=== PATIENT | male | born 1960 | race Caucasian/White ===

== ENCOUNTER 2018-06-14 07:13 | Emergency (ER) | payer OTHER ==
--- OUTSIDE RECORDS SUMMARY | 2018-06-14 07:16 | XMS REPORT | Continuity of Care Document ---
:1960 Author Organization Interface Problems Problem Status Onset Classification Date Comments Source Date Reported ATYPICAL CHEST Active 05/29/20 PAIN, BACTERIAL 17 [facility] [place] CHEST PAIN Active 05/29/20 17 [facility] [place] Benign Active Problem 06/02/2017 Data hypertension<sup> migrated [facility] 1</sup> from [facility] on 11/02/14. CVA (<span Resolved Problem 10/19/2017 ID="[id number]" [facility] >Confirmed</span> [place],[facility] ) [facility] Chest pain Active Problem 10/19/2017 [facility] COPD (<span Resolved Problem 10/19/2017 MH ID="[id number]" [facility] >Confirmed</span> [place] ) [facility] Chronic pain Active Problem 10/19/2017 [facility] Shortness of Active Problem 10/19/2017 breath [facility] Abnormal ECG Active Problem 10/19/2017 [facility] Heart disease Resolved Problem 10/19/2017 [facility] [place] Hyperlipidemia Resolved Problem 10/19/2017 [facility] Group HTN (<span Resolved Problem 10/19/2017 ID="[id number]" [facility] >Confirmed</span> [place] ) [facility] Mixed Active Problem 10/19/2017 hyperlipidemia Medical Group [place] (<span Resolved Problem 10/19/2017 ID="[id number]" [facility] >Confirmed</span> [place] ) [facility] COPD type A Active Problem 10/19/2017 [facility] OTHER CHEST PAIN Active [facility] [place] UNSPECIFIED Active BACTERIAL [facility] [place] Medications Medication Details Route Status Patient Ordering Order Source Instructions Provider Date atorvastatin 20 20 mg=1 tab, Active MH mg oral tablet PO, Bedtime, 018 Medical # 90 tab, 3 Group Refill(s), Pharmacy: [facility] [id number] lisinopril 10 mg 10 mg=1 tab, Active MH oral tablet PO, Daily, # 018 Medical 90 tab, 3 Group Refill(s), [email or web address] [id number] metoprolol 50 mg 50 mg=1 tab, Active MH oral tablet, PO, Daily, # 018 Medical extended release 90 tab, 3 Group Refill(s), [email or web address] [id number] 200 ACTUAT 2 puff, Active Ipratropium INHALATION, 018 Medical [place] 0.017 TID, May Group MG/ACTUAT take 2 Metered Dose additional Inhaler puffs per [Atrovent] day if needed for wheezing, # 1 ea, 11 Refill(s), [email or web address] [id number] Amlodipine 5 mg, 1 tab, No Longer MH Route: PO, Active 017 [facility] form: [place] TAB, Daily, Dosing Weight 66.96, kg, Start date: 05/31/17 9:00:00 [employer], Duration: 30 day, Stop date: 06/29/17 9:00:00 CSTNotes: (Same as: Norvasc) atorvastatin 20 mg, 1 Inactive MH tab, Route: 017 [facility] PO, Drug [place] form: TAB, Bedtime, Dosing Weight 66.96, kg, Start date: 05/30/17 21:00:00 [employer], Duration: 30 day, Stop date: 06/28/17 21:00:00 CSTNotes: (Same As: Lipitor) levofloxacin 750 750 mg=1 Active MH mg oral tablet tab, PO, 017 [facility] [id number], X 7 [place] day, # 7 tab, 0 Refill(s), Pharmacy: [facility] [id number] atorvastatin 20 20 mg=1 tab, Active MH mg oral tablet PO, Bedtime, 017 [facility] # 30 tab, 0 [place] Refill(s), [facility] [id number] amLODIPine 5 mg 5 mg=1 tab, Active MH oral tablet PO, Daily, # 017 [facility] 30 tab, 0 [place] Refill(s), [email or web address] [id number] aspirin 81 mg 81 mg=1 tab, Active MH tablet, enteric PO, Daily, 0 017 [facility] coated Refill(s) [place] Aspirin 81 mg, 1 Inactive MH tab, Route: 017 [facility] PO, Drug [place] form: ECTAB, Daily, Dosing Weight 66.96, kg, Start date: 05/30/17 14:30:00 [employer], Duration: 30 day, Stop date: 06/29/17 9:00:00 CSTNotes: Do not crush or chew. (Same As: Ecotrin) carvedilol 25 mg, 1 Inactive MH tab, Route: 017 [facility] PO, Drug [place] form: TAB, Q12H, Dosing Weight 66.96, kg, Priority: STAT, Start date: 05/30/17 11:27:00 [employer], Duration: 30 day, Stop date: 06/29/17 9:00:00 CSTNotes: Give with food. (Same As: Coreg) Levaquin 750 mg, 1 Inactive MH tab, Route: 017 [facility] PO, Drug [place] form: TAB, [id number], Dosing Weight 66.96, kg, Start date: 05/30/17 9:00:00 [employer], Duration: 7 day, Stop date: 06/05/17 9:00:00 [employer], ABX Indication: PneumoniaNot es: Do not give w/antacids, dairy pdt & minerals Take 1 hr before or 2 hr after dairy products Ibuprofen 600 mg, 1 No Longer MH tab, Route: Active 017 [facility] PO, Drug [place] form: TAB, TID, Dosing Weight 66.96, kg, PRN Pain Score 6-10, Start date: 05/29/17 22:37:00 [employer], Duration: 30 day, Stop date: 06/28/17 22:36:00 CSTNotes: (Same as: Motrin) "Do Not Crush" Take with food. Saline Flush 10 ml, No Longer MH 0.9% Route: IVP, Active 017 [facility] Form: [place] INJ, Dosing Weight 71.364, kg, Q12H, Start date: 05/29/17 21:00:00 [employer], Duration: 30 day, Stop date: 06/28/17 9:00:00 CSTNotes: Same as: BD Posiflush Sterile Saline Flush 10 ml, No Longer MH 0.9% Route: IVP, Active 017 [facility] Form: [place] INJ, Dosing Weight 71.364, kg, PRN, PRN Line Flush, Start date: 05/29/17 15:47:00 [employer], Duration: 30 day, Stop date: 06/28/17 15:46:00 CSTNotes: Same as: BD Posiflush Sterile Nitroglycerin 0.4 mg, 1 No Longer tab, Route: Active 017 [facility] SL, Drug [place] form: TAB, Q5Min, Dosing Weight 71.364, kg, PRN Chest Pain, Start date: 05/29/17 15:47:00 [employer], Duration: 3 doses or times, Stop date: Limited # of timesNotes: (Same as:Nitroquic k, Nitrostat) "Do Not Crush" Sublingual tablet pantoprazole 40 40 mg=1 tab, Active MH mg oral enteric PO, Daily 017 [facility] coated tablet [place] Aspirin 325 MG 325 mg=1 No Longer Enteric Coated tab, PO, Active 017 [facility] Tablet Daily [place] carvedilol 25 mg 25 mg=1 tab, Active oral tablet PO, BID 017 [facility] [place] Levaquin 750 mg, 1 Inactive tab, Route: 017 [facility] PO, Drug [place] form: TAB, ONCE, Dosing Weight 71.364, kg, Start date: 05/29/17 13:31:00 [employer], Stop date: 05/29/17 13:31:00 [employer], ABX Indication: PneumoniaNot es: Do not give w/antacids, dairy pdt & minerals Take 1 hr before or 2 hr after dairy products Saline Flush 10 mL, No Longer 0.9% Route: IVP, Active 017 [facility] Form: [place] INJ, Dosing Weight 71.364, kg, PRN, PRN Line Flush, Start date: 05/29/17 12:16:00 [employer], Duration: 30 day, Stop date: 06/28/17 12:15:00 CSTNotes: Same as: BD Posiflush Sterile Allergies, Adverse Reactions, Alerts Substance Category Reaction Severity Reaction Status Date Comments Source type Reported Immunizations Immunization Date Site Status Last Updated Comments Source Given pneumococcal Left completed Cristi [facility] 23-valent vaccine 7 deltoid [facility] influenza virus Left completed Parimnder [facility] vaccine, 7 deltoid [facility], inactivated Medical Group Results Order Name Results Value Reference Date Interpretation Comments Source Range CARDIAC Troponin-I 0.05 ng/mL 0.00 - 05/30 ENZYMES 0.40 [facility] CARDIAC CK MB 9.8 ng/mL 0.5 - 3.6 05/30 ENZYMES /2016 [facility] CARDIAC Total CK 761 unit/L 05/30 ENZYMES /2017 [facility] CARDIAC Troponin-I 0.07 ng/mL 0.00 - 05/29 ENZYMES 0.40 [facility] CARDIAC Total CK 825 unit/L - 05/29 ENZYMES [facility] CARDIAC CK MB 11.8 ng/mL 0.5 - 3.6 05/29 ENZYMES [facility] CHEM PANEL eGFR 69 05/29 Result Comment: The eGFR is calculated using the CKD-EPI formula. In most young, healthy individuals the eGFR will be >90 mL/ min/1.73m2. The eGFR declines with age. An eGFR of 60-89 may be normal in mL/min/1.73 /2016 some populations, particularly the elderly, for whom the CKD-EPI formula has not been extensively validated. Use of the eGFR is not recommended in the following populations: [facility] [place] Individuals with unstable creatinine concentrations, including patients and those with serious co-morbid conditions. Patients with extremes in muscle mass or diet. The data above are obtained from the National Kidney Disease Education Program (NKDEP) which additionally recommends that when the eGFR is used in patients with extremes of body mass index for purposes of drug dosing, the eGFR should be multiplied by the estimated BMI. CHEM PANEL AGAP 12.8 meq/L 10.0 - 05/29 MH 20.0 /2016 [facility] CHEM PANEL Potassium 3.8 meq/L 3.5 - 5.1 05/29 Lvl /2017 [facility] CHEM PANEL CO2 24 meq/L 24 - 32 05/29 [facility] CHEM PANEL Chloride Lvl 102 meq/L 95 - 109 05/29 [facility] CHEM PANEL Calcium Lvl 8.6 mg/dL 8.5 - 10.5 05/29 [facility] CHEM PANEL BUN 24 mg/dL 7 - 22 05/29 [facility] CHEM PANEL Creatinine 1.16 mg/dL 0.50 - 05/29 Lvl 1.40 /2016 [facility] CHEM PANEL Sodium Lvl 135 meq/L 135 - 145 05/29 [facility] CHEM PANEL Glucose Lvl 88 mg/dL 70 - 99 05/29 [facility] LIPIDS HDL 44 mg/dL >=61 mg/dL 05/29 [facility] LIPIDS Chol 159 mg/dL <=199 05/29 mg/dL /2016 [facility] LIPIDS Trig 56 mg/dL <=149 05/29 mg/dL /2016 [facility] LIPIDS CHD Risk 3.61 4.00 - 05/29 MH 7. [facility] LIPIDS VLDL 11 05/29 [facility] LIPIDS LDL 104 mg/dL <=99 mg/dL 05/29 (Calculated) [facility] CARDIAC Troponin-I 0.04 ng/mL 0.00 - 05/29 ENZYMES 0.40 [facility] CARDIAC BNP 254 pg/mL <=100 05/29 ENZYMES pg/mL /2016 [facility] CARDIAC CK MB 11.4 ng/mL 0.5 - 3.6 05/29 ENZYMES [facility] CARDIAC Total CK 902 unit/L 12 - 191 05/29 ENZYMES /2016 [facility] CARDIAC CK MB Index 1.3 0.0 - 2.5 05/29 ENZYMES [facility] CHEM PANEL eGFR 68 05/29 Result Comment: The eGFR is calculated using the CKD-EPI formula. In most young, healthy individuals the eGFR will be >90 mL/ min/1.73m2. The eGFR declines with age. An eGFR of 60-89 may be normal in mL/min/1.73 /2016 some populations, particularly the elderly, for whom the CKD-EPI formula has not been extensively validated. Use of the eGFR is not recommended in the following populations: [facility] m2 [place] Individuals with unstable creatinine concentrations, including patients and those with serious co-morbid conditions. Patients with extremes in muscle mass or diet. The data above are obtained from the National Kidney Disease Education Program (NKDEP) which additionally recommends that when the eGFR is used in patients with extremes of body mass index for purposes of drug dosing, the eGFR should be multiplied by the estimated BMI. CHEM PANEL Sodium Lvl 132 meq/L 135 - 145 05/29 [facility] CHEM PANEL BUN 27 mg/dL 7 - 22 05/29 [facility] CHEM PANEL Creatinine 1.18 mg/dL 0.50 - 05/29 Lvl 1.40 /2016 [facility] CHEM PANEL Chloride Lvl 99 meq/L 95 - 109 05/29 [facility] CHEM PANEL Potassium 4.2 meq/L 3.5 - 5.1 05/29 MH Lvl /2016 [facility] CHEM PANEL CO2 23 meq/L 24 - 32 05/29 [facility] CHEM PANEL Albumin Lvl 3.6 g/dL 3.5 - 5.0 05/29 [facility] CHEM PANEL Total 7.7 g/dL 6.4 - 8.4 05/29 [facility] CHEM PANEL Calcium Lvl 8.7 mg/dL 8.5 - 10.5 05/29 [facility] CHEM PANEL ALT 19 unit/L 0 - 65 05/29 [facility] CHEM PANEL Alk Phos 91 unit/L 39 - 136 05/29 [facility] CHEM PANEL AST 35 unit/L 0 - 37 05/29 [facility] CHEM PANEL AGAP 14.2 meq/L 10.0 - 05/29 20.0 [facility] CHEM PANEL Bili Total 0.6 mg/dL 0.2 - 1.3 05/29 [facility] CHEM PANEL A/G Ratio 0.9 0.7 - 1.6 05/29 [facility] CHEM PANEL B/C Ratio 23 6 - 25 05/29 [facility] CHEM PANEL Globulin 4.1 g/dL 2.7 - 4.2 05/29 [facility] CHEM PANEL Glucose Lvl 101 mg/dL 70 - 99 05/29 [facility] HEMATOLOGY MCH 31.5 pg 27.0 - 05/29 31.0 [facility] HEMATOLOGY RDW 14.4 % 11.5 - 05/29 14. [facility] HEMATOLOGY MCHC 34.4 g/dL 32.0 - 05/29 36.0 [facility] HEMATOLOGY RBC 4.86 M/CMM 4.70 - 05/29 6.10 [facility] HEMATOLOGY WBC 13.8 K/CMM 3.7 - 10.4 05/29 [facility] HEMATOLOGY Hct 44.5 % 42.0 - 05/29 54.0 [facility] HEMATOLOGY Hgb 15.3 g/dL 14.0 - 05/29 MH 18.0 /2017 [facility] HEMATOLOGY Platelet 203 K/CMM 133 - 450 05/29 /2016 [facility] HEMATOLOGY MPV 8.8 fL 7.4 - 10.4 05/29 MH /2016 [facility] HEMATOLOGY MCV 91.6 fL 80.0 - 05/29 94.0 /2016 [facility] HEMATOLOGY INR 0.96 0.85 - 05/29 MH 1.17 /2016 [facility] HEMATOLOGY PT 12.8 s 12.0 - 05/29 14.7 /2016 [facility] HEMATOLOGY PTT 30.4 s 22.9 - 05/29 35.8 /2017 [facility] HEMATOLOGY Basophils # 0.1 K/CMM 0.0 - 0.2 05/29 /2016 [facility] HEMATOLOGY Eosinophils 0.1 K/CMM 0.0 - 0.5 05/29 MH # /2017 [facility] HEMATOLOGY Lymphocytes 2.2 K/CMM 1.0 - 5.5 05/29 MH # /2017 [facility] HEMATOLOGY Monocytes # 1.2 K/CMM 0.0 - 0.8 05/29 /2016 [facility] HEMATOLOGY Basophils 0.9 % 0.0 - 1.0 05/29 /2016 [facility] HEMATOLOGY Segs-Bands # 10.1 K/CMM 1.5 - 8.1 05/29 /2016 [facility] HEMATOLOGY Eosinophils 0.8 % 0.0 - 4.0 05/29 /2016 [facility] HEMATOLOGY Monocytes 9.0 % 2.0 - 12.0 05/29 /2016 [facility] HEMATOLOGY Lymphocytes 16.0 % 20.0 - 05/29 40.0 /2016 [facility] HEMATOLOGY Segs 73.3 % 45.0 - 05/29 75.0 /2016 [facility] Chest 1view Chest 1view Study: Chest 1view DX portable 05/29/2017 1253 hours 05/29 - DX DX /2016 - [facility] Clinical Indication: Chest pain Read by: Fernando Henao MD Dictated Date/time: 05/29/17 13:14 Comparison: None Electronically Signed by: Fernando Henao MD 05/29/17 13:16 FINAL REPORT FINDINGS: Cardiac size is normal. There is minor aortic atherosclerosis. The lungs are emphysematous. Interstitial scarring is noted. There is question of hazy ill-defined infiltrate at the right lung base. No vascular congestion or pleural effusion is seen. SL: [id number] Vital Signs Vital Sign Value Date Comments Source Height 182.88 cm 09/25/2017 Medical Group BMI Calculated 18.76 09/25/2017 Medical Group Weight 62.727 09/25/2017 [facility] Systolic (mm Hg) 174 09/25/2017 [facility] Group Diastolic (mm Hg) 105 09/25/2017 [facility] Heart Rate 100 09/25/2017 Medical Group Respitory Rate 18 05/30/2017 [facility] [place] Temperature Oral (F) 98.8 F 05/30/2017 [facility] [place] Systolic (mm Hg) 155 05/30/2017 [facility] [place] Diastolic (mm Hg) 88 05/30/2017 [facility] [place] Systolic (mm Hg) 170 05/30/2017 [facility] [place] Diastolic (mm Hg) 99 05/30/2017 [facility] [place] Temperature Oral (F) 97.5 F 05/30/2017 [facility] [place] Respitory Rate 16 05/30/2017 [facility] [place] Systolic (mm Hg) 159 05/30/2017 [facility] [place] Diastolic (mm Hg) 84 05/30/2017 [facility] [place] Respitory Rate 16 05/30/2017 [facility] [place] Temperature Oral (F) 98.1 F 05/30/2017 [facility] [place] Weight 66.96 05/30/2017 [facility] [place] BMI Calculated 20.02 05/30/2017 [facility] [place] Height 182.88 cm 05/30/2017 [facility] [place] BMI Calculated 21.34 05/29/2017 [facility] [place] Weight 71.364 05/29/2017 [facility] [place] Height 182.88 cm 05/29/2017 [facility] [place] Heart Rate 112 05/29/2017 [facility] [place] Encounters Location Location Encounter Encounter Reason Attending ADM DC Status Source Details Type Number For Provider Date Date Visit [facility] [id number] Jacob Phillips 05/29 05/31 [place] 1 Amyo /2016 [facility] [place] [facility] [id number] [facility] 09/25 Active [facility] [id number] [facility] 09/25 09/26 Cardiology 0 [facility] [id number] NOTA 10/16 Active [facility] [id number] Nota 10/16 10/16 [facility] Procedures Procedure Code Date Perfomer Comments Source Cardiac [id number] Medical catheterization, Group left heart
--- OUTSIDE RECORDS SUMMARY | 2018-06-14 07:16 | XMS REPORT | Summary of Care ---
:1960 Author Organization [facility] Address [address] [place] [address]- Encounter HQ Dani(ALYSA) [id number] Date(s): 05/29/17 - 05/30/[address] [address]- Discharge Disposition: Home or Self Care Attending Physician: Jacob Cerda MD Admitting Physician: Jacob Cerda MD Vital Signs Most recent to oldest 1 2 3 [Reference Range]: Height 182.88 cm 182.88 cm (05/29/17 9:29 PM) (05/29/17 11:57 AM) Temperature Oral 98.8 DegF 97.5 DegF 98.1 DegF [96.4-99.1 DegF] (05/30/17 4:17 PM) (05/30/17 11:57 AM) (05/30/17 7:52 AM) Blood Pressure 155/88 mmHg 170/99 mmHg 159/84 mmHg [90-140/60-90 mmHg] *HI* *HI* *HI* (05/30/17 4:17 PM) (05/30/17 11:57 AM) (05/30/17 7:52 AM) Respiratory Rate [14-20 18 BRMIN 16 BRMIN 16 BRMIN BRMIN] (05/30/17 4:17 PM) (05/30/17 11:57 AM) (05/30/17 7:52 AM) Peripheral Pulse Rate 112 bpm [60-100 bpm] *HI* (05/29/17 11:57 AM) Weight 66.96 kg 71.364 kg (05/29/17 9:29 PM) (05/29/17 11:57 AM) Body Mass Index 20.02 m2 21.34 m2 (05/29/17 9:29 PM) (05/29/17 11:57 AM) Problem List Condition Effective Dates Status Health Status Informant Benign hypertension1 Active CVA (cerebral vascular Resolved accident)(Confirmed) COPD (chronic obstructive pulmonary Resolved disease)(Confirmed) Heart disease(Confirmed) Resolved HTN (hypertension)(Confirmed) Resolved MS (myocardial Resolved infarction)(Confirmed) 1Data migrated from [employer] on 11/02/14. Allergies, Adverse Reactions, Alerts Substance Reaction Severity Status NKDA1 Active 1Data migrated from [employer] on 07/26/15. Originally documented as NKA. Medications amLODIPine 5 mg, 1 tab, Route: PO, Drug form: TAB, Daily, Dosing Weight 66.96, kg, Start date: 05/31/17 9:00:00CST, Duration: 30 day, Stop date: 06/29/17 9:00:00 [employer] Notes: (Same as: Norvasc) Start Date: 05/31/17 Stop Date: 05/30/17 Status: CanceledamLODIPine 5 mg oral tablet 5 mg=1 tab, PO, Daily, # 30 tab, 0 Refill(s), Pharmacy: [facility] [id number] Start Date: 05/30/17 Stop Date: 06/29/17 Status: Orderedaspirin 81 mg, 1 tab, Route: PO, Drug form: ECTAB, Daily, Dosing Weight 66.96, kg, Start date: 05/30/17 14:30:00 [employer]ILL[employer], Duration: 30 day, Stop date: 06/29/17 9:00: 00 [employer]ER Notes: Do not crush or chew.(Same As: Ecotrin) Start Date: 05/30/17 Stop Date: 05/30/17 Status: Discontinuedaspirin 325 mg tablet, enteric coated 325 mg=1 tab, PO, Daily Start Date: 05/29/17 Stop Date: 05/30/17 Status: Discontinuedaspirin 81 mg tablet, enteric coated 81 mg=1 tab, PO, Daily, 0 Refill(s) Start Date: 05/30/17 Status: Orderedatorvastatin 20 mg, 1 tab, Route: PO, Drug form: TAB, Bedtime, Dosing Weight 66.96, kg, Start date: 05/30/17 21:00:00 [employer]ILL[employer], Duration: 30 day, Stop date: 06/28/17 21:00: 00 [employer] Notes: (Same As: Lipitor) Start Date: 05/30/17 Stop Date: 05/30/17 Status: Discontinuedatorvastatin 20 mg oral tablet 20 mg=1 tab, PO, Bedtime, # 30 tab, 0 Refill(s), Pharmacy: [facility] [id number] Start Date: 05/30/17 Stop Date: 06/29/17 Status: Orderedcarvedilol 25 mg, 1 tab, Route: PO, Drug form: TAB, Q12H, Dosing Weight 66.96, kg, Priority : STAT, Start date: 05/30/17 11:27:00 [employer], Duration: 30 day, Stop date: 9:00:00 [employer] Notes: Give with food. (Same As: Coreg) Start Date: 05/30/17 Stop Date: 05/30/17 Status: Discontinuedcarvedilol 25 mg oral tablet 25 mg=1 tab, PO, BID Start Date: 05/29/17 Status: Orderedibuprofen 600 mg, 1 tab, Route: PO, Drug form: TAB, TID, Dosing Weight 66.96, kg, PRN Pain Score 6-10, Start date: 05/29/17 22:37:00 [employer], Duration: 30 day, Stop date : 06/28/17 22:36:00 [employer] Notes: (Same as: Motrin)"Do Not Crush" Take with food. Start Date: 05/29/17 Stop Date: 05/30/17 Status: DiscontinuedLevaquin 750 mg, 1 tab, Route: PO, Drug form: TAB, [id number], Dosing Weight 66.96, kg, Start date: 05/30/17 9:00:00 [employer], Duration: 7 day, Stop date: 06/05/17 9:00:00 [employer], ABX Indication: Pneumonia Notes: Do not give w/antacids, dairy pdt & mineralsTake 1 hr before or 2 hr after dairy products Start Date: 05/30/17 Stop Date: 05/30/17 Status: DiscontinuedLevaquin 750 mg, 1 tab, Route: PO, Drug form: TAB, ONCE, Dosing Weight 71.364, kg, Start date: 05/29/17 13:31:00 [employer], Stop date: 05/29/17 13:31:00 [employer], ABX Indication: Pneumonia Notes: Do not give w/antacids, dairy pdt & mineralsTake 1 hr before or 2 hr after dairy products Start Date: 05/29/17 Stop Date: 05/29/17 Status: Completedlevofloxacin 750 mg oral tablet 750 mg=1 tab, PO, [id number], X 7 day, # 7 tab, 0 Refill(s), Pharmacy: [facility] [id number] Start Date: 05/30/17 Stop Date: 06/06/17 Status: Orderednitroglycerin SL Tab 0.4 mg, 1 tab, Route: SL, Drug form: TAB, Q5Min, Dosing Weight 71.364, kg, PRN Chest Pain, Start date: 05/29/17 15:47:00 [employer], Duration: 3 doses or times, Stop date: Limited # of times Notes: (Same as:Nitroquick, Nitrostat)"Do Not Crush" Sublingual tablet Start Date: 05/29/17 Stop Date: 05/30/17 Status: Discontinuedpantoprazole 40 mg oral enteric coated tablet 40 mg=1 tab, PO, Daily Start Date: 05/29/17 Status: OrderedSaline Flush 0.9% 10 mL, Route: IVP, Drug Form: INJ, Dosing Weight 71.364, kg, PRN, PRN Line Flush , Start date: 05/29/17 12:16:00 [employer]ER, Duration: 30 day, Stop date: 06/28/17 12:15 :00 [employer] BILLER Notes: Same as: BD Posiflush Sterile Start Date: 05/29/17 Stop Date: 05/30/17 Status: DeletedSaline Flush 0.9% 10 ml, Route: IVP, Drug Form: INJ, Dosing Weight 71.364, kg, PRN, PRN Line Flush , Start date: 05/29/17 15:47:00 [employer] BILLER, Duration: 30 day, Stop date: 06/28/17 15:46 :00 [employer] BILLER Notes: Same as: BD Posiflush Sterile Start Date: 05/29/17 Stop Date: 05/30/17 Status: DiscontinuedSaline Flush 0.9% 10 ml, Route: IVP, Drug Form: INJ, Dosing Weight 71.364, kg, Q12H, Start date: 05/29/17 21:00:00 [employer]UR[employer] BILLER, Duration: 30 day, Stop date: 06/28/17 9:00:00 [employer] BILLER Notes: Same as: BD Posiflush Sterile Start Date: 05/29/17 Stop Date: 05/30/17 Status: Discontinued Results ELECTROLYTES Most recent to oldest [Reference Range]: 1 2 3 Sodium Lvl [135-145 mEq/L] 135 mEq/L 132 mEq/L (05/29/17 4:50 PM) *LOW* (05/29/17 12:26 PM) Potassium Lvl [3.5-5.1 mEq/L] 3.8 mEq/L 4.2 mEq/L (05/29/17 4:50 PM) (05/29/17 12:26 PM) Chloride Lvl [95-109 mEq/L] 102 mEq/L 99 mEq/L (05/29/17 4:50 PM) (05/29/17 12:26 PM) CO2 [24-32 mEq/L] 24 mEq/L 23 mEq/L (05/29/17 4:50 PM) *LOW* (05/29/17 12:26 PM) AGAP [10.0-20.0 mEq/L] 12.8 mEq/L 14.2 mEq/L (05/29/17 4:50 PM) (05/29/17 12:26 PM) CHEM PANEL Most recent to oldest [Reference Range]: 1 2 3 Creatinine Lvl [0.50-1.40 mg/dL] 1.16 mg/dL 1.18 mg/dL (05/29/17 4:50 PM) (05/29/17 12:26 PM) eGFR 69 mL/min/1.73m2 1 68 mL/min/1.73m2 2 *NA* *NA* (05/29/17 4:50 PM) (05/29/17 12:26 PM) BUN [7-22 mg/dL] 24 mg/dL 27 mg/dL *HI* *HI* (05/29/17 4:50 PM) (05/29/17 12:26 PM) B/C Ratio [6-25] 23 (05/29/17 12:26 PM) Glucose Lvl [70-99 mg/dL] 88 mg/dL 101 mg/dL (05/29/17 4:50 PM) *HI* (05/29/17 12:26 PM) Total Protein [6.4-8.4 g/dL] 7.7 g/dL (05/29/17 12:26 PM) Albumin Lvl [3.5-5.0 g/dL] 3.6 g/dL (05/29/17 12:26 PM) Globulin [2.7-4.2 g/dL] 4.1 g/dL (05/29/17 12:26 PM) A/G Ratio [0.7-1.6] 0.9 (05/29/17 12:26 PM) Calcium Lvl [8.5-10.5 mg/dL] 8.6 mg/dL 8.7 mg/dL (05/29/17 4:50 PM) (05/29/17 12:26 PM) ALT [0-65 unit/L] 19 unit/L (05/29/17 12:26 PM) AST [0-37 unit/L] 35 unit/L (05/29/17 12:26 PM) Alk Phos [39-136 unit/L] 91 unit/L (05/29/17 12:26 PM) Bili Total [0.2-1.3 mg/dL] 0.6 mg/dL (05/29/17 12:26 PM) 1Result Comment: The eGFR is calculated using the CKD-EPI formula. In most young , healthy individualsthe eGFR will be >90 mL/min/1.73m2. The eGFR declines with age. An eGFR of 60-89 may be normal insome populations, particularly the elderly, for whom the CKD-EPI formula has not been extensively validated. Use of the eGFR is not recommended in the following populations: Individuals with unstable creatinine concentrations, including patients and those with serious co-morbid conditions. Patients with extremes in muscle mass or diet. The data above are obtained from the National Kidney Disease Education Program ( NKDEP) which additionally recommends that when the eGFR is used in patients with extremes of body mass index for purposesof drug dosing, the eGFR should be multiplied by the estimated BMI.2Result Comment: The eGFR is calculated using the CKD-EPI formula. In most young, healthy individualsthe eGFR will be >90 mL/min/1.73m2. The eGFR declines with age. An eGFR of 60-89 may be normal insome populations, particularly the elderly, for whom the CKD-EPI formula has not been extensively validated. Use of the eGFR is not recommended in the following populations: Individuals with unstable creatinine concentrations, including patients and those with serious co-morbid conditions. Patients with extremes in muscle mass or diet. The data above are obtained from the National Kidney Disease Education Program ( NKDEP) which additionally recommends that when the eGFR is used in patients with extremes of body mass index for purposesof drug dosing, the eGFR should be multiplied by the estimated BMI.CARDIAC ENZYMES Most recent to oldest 1 2 3 [Reference Range]: Total CK [12-191 unit/L] 761 unit/L 825 unit/L 902 unit/L *HI* *HI* *HI* (05/29/17 11:09 PM) (05/29/17 4:50 PM) (05/29/17 12:26 PM) CK MB [0.5-3.6 ng/mL] 9.8 ng/mL 11.8 ng/mL 11.4 ng/mL *HI* *HI* *HI* (05/29/17 11:09 PM) (05/29/17 4:50 PM) (05/29/17 12:26 PM) CK MB Index [0.0-2.5] 1.3 (05/29/17 12:26 PM) Troponin-I [0.00-0.40 0.05 ng/mL 0.07 ng/mL 0.04 ng/mL ng/mL] (05/29/17 11:09 PM) (05/29/17 4:50 PM) (05/29/17 12:26 PM) BNP [<=100 pg/mL] 254 pg/mL *HI* (05/29/17 12:26 PM) LIPIDS Most recent to oldest [Reference Range]: 1 2 3 CHD Risk [4.00-7.30] 3.61 *LOW* (05/29/17 4:50 PM) Chol [<=199 mg/dL] 159 mg/dL (05/29/17 4:50 PM) Trig [<=149 mg/dL] 56 mg/dL (05/29/17 4:50 PM) HDL [>=61 mg/dL] 44 mg/dL *LOW* (05/29/17 4:50 PM) LDL (Calculated) [<=99 mg/dL] 104 mg/dL *HI* (05/29/17 4:50 PM) VLDL 11 *NA* (05/29/17 4:50 PM) HEMATOLOGY Most recent to oldest [Reference Range]: 1 2 3 WBC [3.7-10.4 K/CMM] 13.8 K/CMM *HI* (05/29/17 12:26 PM) RBC [4.70-6.10 M/CMM] 4.86 M/CMM (05/29/17 12:26 PM) Hgb [14.0-18.0 g/dL] 15.3 g/dL (05/29/17 12:26 PM) Hct [42.0-54.0 %] 44.5 % (05/29/17 12:26 PM) MCV [80.0-94.0 fL] 91.6 fL (05/29/17 12:26 PM) MCH [27.0-31.0 pg] 31.5 pg *HI* (05/29/17 12:26 PM) MCHC [32.0-36.0 g/dL] 34.4 g/dL (05/29/17 12:26 PM) RDW [11.5-14.5 %] 14.4 % (05/29/17 12:26 PM) Platelet [133-450 K/CMM] 203 K/CMM (05/29/17 12:26 PM) MPV [7.4-10.4 fL] 8.8 fL (05/29/17 12:26 PM) Segs [45.0-75.0 %] 73.3 % (05/29/17 12:26 PM) Lymphocytes [20.0-40.0 %] 16.0 % *LOW* (05/29/17 12: PM) Monocytes [2.0-12.0 %] 9.0 % (05/29/17 12:26 PM) Eosinophils [0.0-4.0 %] 0.8 % (05/29/17 12:26 PM) Basophils [0.0-1.0 %] 0.9 % (05/29/17 12:26 PM) Segs-Bands # [1.5-8.1 K/CMM] 10.1 K/CMM *HI* (05/29/17 12:26 PM) Lymphocytes # [1.0-5.5 K/CMM] 2.2 K/CMM (05/29/17 12:26 PM) Monocytes # [0.0-0.8 K/CMM] 1.2 K/CMM *HI* (05/29/17 12:26 PM) Eosinophils # [0.0-0.5 K/CMM] 0.1 K/CMM (05/29/17 12:26 PM) Basophils # [0.0-0.2 K/CMM] 0.1 K/CMM (05/29/17 12:26 PM) PT [12.0-14.7 seconds] 12.8 seconds (05/29/17 12:26 PM) INR [0.85-1.17] 0.96 (05/29/17 12:26 PM) PTT [22.9-35.8 seconds] 30.4 seconds (05/29/17 12:26 PM) Immunizations Given and Recorded Vaccine Date Status Refusal Reason pneumococcal 23-valent vaccine 05/30/17 Given influenza virus vaccine, inactivated 05/30/17 Given Procedures No data available for this section Social History Social History Type Response Smoking Status Current every day smoker; Type: Cigarettes; Exposure to Tobacco Smoke None; Cigarette Smoking Last 365 Days Yes; Reg Smoking Cessation Counseling Yes Assessment and Plan No data available for this section
--- OUTSIDE RECORDS SUMMARY | 2018-06-14 07:17 | XMS REPORT ---
:1960 [facility] Address [address] [place] [address] Dr. Ramirez [address] [place] [id number] Care Team Providers Name Role Phone Unavailable Unavailable Unavailable Payers Payer Name Policy Type Policy Number Effective Date Expiration Date Problems This patient has no known problems. Allergies, Adverse Reactions, Alerts Allergy Allergy Status Severity Reaction(s) Onset Inactive Treating Comments Name Type Date Date Clinician No Known DA Active U 2017-07 Allergies - 00:00:0 0 Medications This patient has no known medications.
--- OUTSIDE RECORDS SUMMARY | 2018-06-14 07:17 | XMS REPORT | Summary of Care ---
:1960 Author Organization [facility] Address [address], [address] [place] [address]- Encounter HQ Encntr_alias(FIN) [id number] Date(s): 10/16/17 - 10/16/17 [facility] [address], [address] [place] [address] [phone] Attending Physician: Nilam Kerr MD Referring Physician: Kartik Parham MD Vital Signs No data available for this section Problem List Condition Effective Dates Status Health Status Informant CVA (cerebral vascular Resolved accident)(Confirmed) Chest pain(Confirmed) Active COPD (chronic obstructive pulmonary Resolved disease)(Confirmed) Chronic pain(Confirmed) Active Shortness of breath(Confirmed) Active Abnormal ECG(Confirmed) Active Heart disease(Confirmed) Resolved Hyperlipidemia(Confirmed) Resolved HTN (hypertension)(Confirmed) Resolved Mixed hyperlipidemia(Confirmed) Active VT (myocardial Resolved infarction)(Confirmed) COPD type A(Confirmed) Active Allergies, Adverse Reactions, Alerts Substance Reaction Severity Status NKDA1 Active 1Data migrated from [employer] on 07/26/15. Originally documented as NKA. Medications No data available for this section Results No data available for this section Immunizations Given and Recorded Vaccine Date Status Refusal Reason pneumococcal 23-valent vaccine 05/30/17 Given influenza virus vaccine, inactivated 05/30/17 Given Procedures Procedure Date Related Diagnosis Body Site Status Cardiac catheterization, left heart Completed Social History Social History Type Response Smoking Status Current every day smoker; Type: Cigarettes; Exposure to Tobacco Smoke None; Cigarette Smoking Last 365 Days Yes; Reg Smoking Cessation Counseling Yes entered on: 09/25/17 Assessment and Plan No data available for this section
--- OUTSIDE RECORDS SUMMARY | 2018-06-14 07:17 | XMS REPORT | Summary of Care ---
:1960 Author Organization [facility] [place] [facility] Address [address] [place] [address]- Encounter HQ Dani(FIN) [id number] Date(s): 09/25/17 - 09/25/17 [facility] [address] [place] [address]- [place] Discharge Disposition: Home or Self Care Attending Physician: Kartik Parham MD Referring Physician: Kartik Parham MD Vital Signs Most recent to oldest [Reference Range]: 1 Height 182.88 cm (09/25/17 2:40 PM) Blood Pressure [90-140/60-90 mmHg] 174/105 mmHg *HI* (09/25/17 2:40 PM) Peripheral Pulse Rate [60-100 bpm] 100 bpm (09/25/17 2:40 PM) Weight 62.727 kg (09/25/17 2:40 PM) Body Mass Index 18.76 m2 (09/25/17 2:40 PM) Problem List Condition Effective Dates Status Health Status Informant CVA (cerebral vascular Resolved accident)(Confirmed) Chest pain(Confirmed) Active COPD (chronic obstructive pulmonary Resolved disease)(Confirmed) Chronic pain(Confirmed) Active Shortness of breath(Confirmed) Active Abnormal ECG(Confirmed) Active Heart disease(Confirmed) Resolved Hyperlipidemia(Confirmed) Resolved HTN (hypertension)(Confirmed) Resolved Mixed hyperlipidemia(Confirmed) Active GA (myocardial Resolved infarction)(Confirmed) COPD type A(Confirmed) Active Allergies, Adverse Reactions, Alerts Substance Reaction Severity Status NKDA1 Active 1Data migrated from [employer] on 07/26/15. Originally documented as NKA. Medications atorvastatin 20 mg oral tablet 20 mg=1 tab, PO, Bedtime, # 90 tab, 3 Refill(s), Pharmacy: [facility] [id number] Start Date: 09/25/17 Stop Date: 01/23/18 Status: OrderedAtrovent HFA 17 mcg/inh inhalation aerosol 2 puff, INHALATION, TID, May take 2 additional puffs per day if needed for wheezing, # 1 ea, 11 Refill(s), Pharmacy: [facility] [id number] Start Date: 09/25/17 Status: Orderedlisinopril 10 mg oral tablet 10 mg=1 tab, PO, Daily, # 90 tab, 3 Refill(s), Pharmacy: [facility] [id number] Start Date: 09/25/17 Status: Orderedmetoprolol 50 mg oral tablet, extended release 50 mg=1 tab, PO, Daily, # 90 tab, 3 Refill(s), Pharmacy: [facility] [id number] Start Date: 09/25/17 Status: Ordered Results No data available for this section [...]
[2018-06-14] MEDS ORDERED: KETOROLAC 30 MG/ML INJ ONE (07:37)
[2018-06-14] MEDS ORDERED: HYDROCODONE/APAP 10/325 TAB ONE (07:38)
--- NOTE | 2018-06-14 07:49 | EDPHYS ---
Physician Documentation [facility] Name: Osvaldo Pritchard Age: 58 yrs Sex: Male : 1960 Arrival Date: 06/14/2018 Time: 07:14 Bed 20 Private MD: ED Physician Benito Chen HPI: 06/14 07:16 This 58 yrs old Male presents to ER via Unassigned with complaints of Back kb Pain. 07:16 The patient presents with pain that is acute, with no known mechanism of injury. The kb symptoms are located in the right low back. The pain radiates to the right leg. The problem was sustained without known cause. Onset: The symptoms/episode began/occurred this morning, at 02:00. Modifying factors: The patient symptoms are alleviated by nothing, the patient symptoms are aggravated by any movement. Associated signs and symptoms: The patient has no apparent associated signs or symptoms. Severity of symptoms: At their worst the symptoms were moderate, in the emergency department the symptoms are unchanged. The patient has experienced similar episodes in the past, a few times. The patient has not recently seen a physician. Pt states he woke up between 0200 and 0300 with right low back/upper buttock pain that radiates down right leg. States he has had this pain before and it feels like a pinched nerve.. Historical: - Allergies: 07:17 No Known Allergies; em - PMHx: 07:17 CAD; Hypertension; em 07:21 CVA; Myocardial infarction; em - PSHx: 07:17 back surgery; right hip surgery; em - Immunization history:: Last tetanus immunization: unknown, Flu vaccine is up to date. - Social history:: Smoking status: Patient uses tobacco products, smokes one-half pack cigarettes per day. - Ebola Screening: : Patient negative for fever greater than or equal to 101.5 degrees Fahrenheit, and additional compatible Ebola Virus Disease symptoms Patient denies exposure to infectious person Patient denies travel to an Ebola-affected area in the 21 days before illness onset No symptoms or risks identified at this time. ROS: 07:23 Constitutional: Negative for fever, chills, and weight loss, Neck: Negative for injury, kb pain, and swelling, Cardiovascular: Negative for chest pain, palpitations, and edema, Respiratory: Negative for shortness of breath, cough, wheezing, and pleuritic chest pain, Abdomen/GI: Negative for abdominal pain, nausea, vomiting, diarrhea, and constipation, MS/Extremity: Negative for injury and deformity, Skin: Negative for injury, rash, and discoloration, Neuro: Negative for headache, weakness, numbness, tingling, and seizure. 07:23 Back: Positive for pain at rest, pain with movement, radiated pain, of the right low back. Exam: 07:24 Constitutional: This is a well developed, well nourished patient who is awake, alert, kb and in no acute distress. Head/Face: Normocephalic, atraumatic. Neck: Trachea midline, no thyromegaly or masses palpated, and no cervical lymphadenopathy. Supple, full range of motion without nuchal rigidity, or vertebral point tenderness. No Meningismus. Chest/axilla: Normal chest wall appearance and motion. Nontender with no deformity. No lesions are appreciated. Cardiovascular: Regular rate and rhythm with a normal S1 and S2. No gallops, murmurs, or rubs. Normal PMI, no JVD. No pulse deficits. Respiratory: Lungs have equal breath sounds bilaterally, clear to auscultation and percussion. No rales, rhonchi or wheezes noted. No increased work of breathing, no retractions or nasal flaring. Abdomen/GI: Soft, non-tender, with normal bowel sounds. No distension or tympany. No guarding or rebound. No evidence of tenderness throughout. Skin: Warm, dry with normal turgor. Normal color with no rashes, no lesions, and no evidence of cellulitis. MS/ Extremity: Pulses equal, no cyanosis. Neurovascular intact. Full, normal range of motion. Neuro: Awake and alert, GCS 15, oriented to person, place, time, and situation. Cranial nerves II-XII grossly intact. Motor strength 5/5 in all extremities. Sensory grossly intact. Cerebellar exam normal. Normal gait. 07:24 Back: pain, that is moderate, of the right low back, ROM is painful, normal spinal alignment noted, vertebral tenderness, is not appreciated. Vital Signs: 07:15 BP 142 / 94; Pulse 92; Resp 18; Temp 97.4(O); Pulse Ox 98% on R/A; Weight 66.68 kg; em Height 6 ft. 0 in. (182.88 cm); Pain 10/10; 08:00 BP 154 / 93; Pulse 87; Resp 16; Pulse Ox 99% on R/A; Pain 5/10; em 07:15 Body Mass Index 19.94 (66.68 kg, 182.88 cm) em MDM: 07:14 Patient medically screened. kb 07:15 Data reviewed: vital signs, nurses notes. Data interpreted: Pulse oximetry: on room air kb is 98 %. Interpretation: normal. 07:15 Counseling: I had a detailed discussion with the patient and/or guardian regarding: the kb historical points, exam findings, and any diagnostic results supporting the discharge/admit diagnosis, the need for outpatient follow up, a family practitioner, to return to the emergency department if symptoms worsen or persist or if there are any questions or concerns that arise at home. Administered Medications: 07:34 Drug: [place] 10 mg-325 mg 1 tabs Route: PO; em 08:06 Follow up: Response: No adverse reaction; Pain is decreased em 07:34 Drug: TORadol 60 mg Route: IM; Site: right gluteus; em 08:06 Follow up: Response: No adverse reaction; Pain is decreased em Disposition: 19 07:47 Discharged to Home. Impression: Sciatica, right side. - Condition is Stable. - Discharge Instructions: Sciatica, Arya-lp-Jlir, Back Exercises, [id number]. - Prescriptions for Cyclobenzaprine 10 mg Oral Tablet - take 1 tablet by ORAL route every 8 hours As needed; 21 tablet. Diclofenac Sodium 75 mg Oral Tablet, Delayed Release (E.C.) - take 1 tablet by ORAL route 2 times per day As needed; 30 tablet. - Medication Reconciliation Form, Thank You Letter, Antibiotic Education, Prescription Opioid Use form. - Follow up: Emergency Department; When: As needed; Reason: Worsening of condition. Follow up: Private Physician; When: 2 - 3 days; Reason: Recheck today's complaints, Continuance of care, Re-evaluation by your physician. Addendum: 06/17/2018 06:45 Co-signature as Attending Physician, Benito Chen MD I agree with the assessment and c nagel plan of care. Signatures: Komal Hawkins, GREGORY-C GREGORY-Benito Martinez MD MD cha Munoz, Edgar, AERONAUTICAL ENGINEERING PROFESSOR AERONAUTICAL ENGINEERING PROFESSOR em Corrections: (The following items were deleted from the chart) 06/14 08:49 07:47 06/14/2018 07:47 Discharged to Home. Impression: Sciatica, right side. Condition em is Stable. Discharge Instructions: Sciatica, Evxo-wh-Zgju, Back Exercises, [id number]-[id number]. Prescriptions for Cyclobenzaprine 10 mg Oral Tablet - take 1 tablet by ORAL route every 8 hours As needed; 21 tablet, Diclofenac Sodium 75 mg Oral Tablet, Delayed Release (E.C.) - take 1 tablet by ORAL route 2 times per day As needed; 30 tablet. and Forms are Medication Reconciliation Form, Thank You Letter, Antibiotic Education, Prescription Opioid Use. Follow up: Emergency Department; When: As needed; Reason: Worsening of condition. Follow up: Private Physician; When: 2 - 3 days; Reason: Recheck today's complaints, Continuance of care, Re-evaluation by your physician. kb
--- NOTE | 2018-06-14 07:49 | ER ---
Nurse's Notes [facility] Name: Osvaldo Pritchard Age: 58 yrs Sex: Male : 1960 Arrival Date: 06/14/2018 Time: 07:14 Bed 20 Private MD: Diagnosis: Sciatica, right side Presentation: 06/14 07:16 Presenting complaint: Patient states: R low back/ buttock pain that radiates all the ss way down patient's leg. Woke patient up out of his sleep this AM. Transition of care: patient was not received from another setting of care. Onset of symptoms was June 14, 2018. Risk Assessment: Do you want to hurt yourself or someone else? Patient reports no desire to harm self or others. Initial Sepsis Screen: Does the patient meet any 2 criteria? No. Patient's initial sepsis screen is negative. Does the patient have a suspected source of infection? No. Patient's initial sepsis screen is negative. Care prior to arrival: None. 07:16 Method Of Arrival: Ambulatory ss 07:16 Acuity: MARY 3 ss Triage Assessment: 07:15 General: Appears in no apparent distress. uncomfortable, Behavior is calm, cooperative. em Pain: Complains of pain in left lower back and right lower back Pain radiates to right leg Pain began 0200. Musculoskeletal: Range of motion: intact in all extremities. Historical: - Allergies: 07:17 No Known Allergies; em - PMHx: 07:17 CAD; Hypertension; em 07:21 CVA; Myocardial infarction; em - PSHx: 07:17 back surgery; right hip surgery; em - Immunization history:: Last tetanus immunization: unknown, Flu vaccine is up to date. - Social history:: Smoking status: Patient uses tobacco products, smokes one-half pack cigarettes per day. - Ebola Screening: : Patient negative for fever greater than or equal to 101.5 degrees Fahrenheit, and additional compatible Ebola Virus Disease symptoms Patient denies exposure to infectious person Patient denies travel to an Ebola-affected area in the 21 days before illness onset No symptoms or risks identified at this time. Screenin:21 Abuse screen: Denies threats or abuse. Nutritional screening: No deficits noted. em Tuberculosis screening: No symptoms or risk factors identified. Fall Risk None identified. Assessment: 07:21 General: Appears in no apparent distress. uncomfortable, Behavior is calm, cooperative. em Pain: Complains of pain in right lower back and left lower back. Neuro: Level of Consciousness is awake, alert, obeys commands, Oriented to person, place, time, situation. Cardiovascular: Denies chest pain, shortness of breath, Capillary refill < 3 seconds Patient's skin is warm and dry. Respiratory: Airway is patent Respiratory effort is even, unlabored, Respiratory pattern is regular, symmetrical, Breath sounds are clear bilaterally. GI: Abdomen is flat, Patient currently denies nausea, vomiting. : No signs and/or symptoms were reported regarding the genitourinary system. Derm: Skin is intact, is healthy with good turgor, Skin is pink, warm \T\ dry. Musculoskeletal: Range of motion: limited in right hip. 08:00 Reassessment: Patient appears in no apparent distress at this time. Patient and/or em family updated on plan of care and expected duration. Pain level reassessed. Patient is alert, oriented x 3, equal unlabored respirations, skin warm/dry/pink. pending transportation from [facility]. Vital Signs: 07:15 BP 142 / 94; Pulse 92; Resp 18; Temp 97.4(O); Pulse Ox 98% on R/A; Weight 66.68 kg; em Height 6 ft. 0 in. (182.88 cm); Pain 10/10; 08:00 BP 154 / 93; Pulse 87; Resp 16; Pulse Ox 99% on R/A; Pain 5/10; em 07:15 Body Mass Index 19.94 (66.68 kg, 182.88 cm) em ED Course: 07:14 Patient arrived in ED. em 07:14 Komal Hawkins FNP-C is PHCP. kb 07:14 Benito Chen MD is Attending Physician. kb 07:15 Arm band placed on. em 07:17 Triage completed. ss 07:19 Osmin Chaidez LVN is Primary Nurse. em 07:21 Patient has correct armband on for positive identification. Bed in low position. Call em light in reach. Side rails up X2. Pulse ox on. NIBP on. 08:47 No provider procedures requiring assistance completed. Patient did not have IV access em during this emergency room visit. Administered Medications: 07:34 Drug: [place] 10 mg-325 mg 1 tabs Route: PO; em 08:06 Follow up: Response: No adverse reaction; Pain is decreased em 07:34 Drug: TORadol 60 mg Route: IM; Site: right gluteus; em 08:06 Follow up: Response: No adverse reaction; Pain is decreased em Outcome: 07:47 Discharge ordered by . meredith 08:47 Discharged to home ambulatory, with family. em 08:47 Condition: good 08:47 Discharge instructions given to patient, Instructed on discharge instructions, follow up and referral plans. Demonstrated understanding of instructions, follow-up care, medications, Prescriptions given X 2. 08:49 Patient left the ED. em Signatures: Komal Hawkins, SOYFREEZE OPERATOR-C SOYFREEZE OPERATOR-Osmin Ang, SPECIMEN PREPARATION ASSISTANT SPECIMEN PREPARATION ASSISTANT em Amy Morrison, RN RN ss
== END 2018-06-14 08:49 | disposition home or self-care (01) ==
LOC: ER 07:13
DX: M54.31 Sciatica, right side (principal); I10 Essential (primary) hypertension; I25.2 Old myocardial infarction; F17.210 Nicotine dependence, cigarettes, uncomplicated
CPT/HCPCS: 96372; 99283

== ENCOUNTER 2018-07-05 21:32 | Emergency (ER) | payer OTHER ==
--- OUTSIDE RECORDS SUMMARY | 2018-07-05 21:35 | XMS REPORT | Continuity of Care Document ---
:1960 Author Organization Interface Problems Problem Status Onset Classification Date Comments Source Date Reported CHEST PAIN Active 05/29/20 [facility] 17 [facility] [place] ATYPICAL CHEST Active 05/29/20 PAIN, BACTERIAL 17 [facility] PNEUMONIA [place] Benign Active Problem 06/02/2017 Data hypertension<sup> migrated [facility]</sup> from [facility] on 11/02/14. CVA (<span Resolved Problem 10/19/2017 ID="[id number]" [facility] >Confirmed</span> [place],M ) [facility] Chest pain Active Problem 10/19/2017 Medical Group COPD (<span Resolved Problem 10/19/2017 ID="[id number]" [facility] >Confirmed</span> [place]M ) [facility] Chronic pain Active Problem 10/19/2017 Medical Group Shortness of Active Problem 10/19/2017 breath [facility] Abnormal ECG Active Problem 10/19/2017 [facility] Group Heart disease Resolved Problem 10/19/2017 [facility] [place] Hyperlipidemia Resolved Problem 10/19/2017 Medical Group HTN (<span Resolved Problem 10/19/2017 ID="[id number]" [facility] >Confirmed</span> [place] ) [facility] Mixed Active Problem 10/19/2017 hyperlipidemia Medical Group CO (<span Resolved Problem 10/19/2017 ID="[id number]" [facility] >Confirmed</span> [place],M ) [facility] COPD type A Active Problem 10/19/2017 Medical Group OTHER CHEST PAIN Active [facility] UNSPECIFIED Active BACTERIAL [facility] PNEUMONIA [place] Medications Medication Details Route Status Patient Ordering Order Source Instructions Provider Date atorvastatin 20 20 mg=1 tab, Active MH mg oral tablet PO, Bedtime, 018 Medical # 90 tab, 3 Group Refill(s), Pharmacy: [facility] [id number] lisinopril 10 mg 10 mg=1 tab, Active MH oral tablet PO, Daily, # 018 Medical 90 tab, 3 Group Refill(s), Pharmacy: [facility] [id number] metoprolol 50 mg 50 mg=1 tab, Active MH oral tablet, PO, Daily, # 018 Medical extended release 90 tab, 3 Group Refill(s), [facility] [id number] 200 ACTUAT 2 puff, Active Ipratropium INHALATION, 018 Medical [place] 0.017 TID, May Group MG/ACTUAT take 2 Metered Dose additional Inhaler puffs per [Atrovent] day if needed for wheezing, # 1 ea, 11 Refill(s), [facility] [id number] Amlodipine 5 mg, 1 tab, No Longer MH Route: PO, Active 017 [facility] form: [place] TAB, Daily, Dosing Weight 66.96, kg, Start date: 05/31/17 9:00:00 CASH ACCOUNTING CLERK, Duration: 30 day, Stop date: 06/29/17 9:00:00 CSTNotes: (Same as: Norvasc) atorvastatin 20 mg, 1 Inactive MH tab, Route: 017 [facility] PO, Drug [place] form: TAB, Bedtime, Dosing Weight 66.96, kg, Start date: 05/30/17 21:00:00 CASH ACCOUNTING CLERK, Duration: 30 day, Stop date: 06/28/17 21:00:00 CSTNotes: (Same As: Lipitor) levofloxacin 750 750 mg=1 Active MH mg oral tablet tab, PO, 017 [facility] [id number], X 7 [place] day, # 7 tab, 0 Refill(s), Pharmacy: [facility] [id number] atorvastatin 20 20 mg=1 tab, Active MH mg oral tablet PO, Bedtime, 017 [facility] # 30 tab, 0 [facility] Refill(s), Pharmacy: [facility] [id number] amLODIPine 5 mg 5 mg=1 tab, Active MH oral tablet PO, Daily, # 017 [facility] 30 tab, 0 [place] Refill(s), Pharmacy: [facility] [id number] aspirin 81 mg 81 mg=1 tab, Active MH tablet, enteric PO, Daily, 0 017 [facility] coated Refill(s) [place] Aspirin 81 mg, 1 Inactive MH tab, Route: 017 [facility] PO, Drug [place] form: ECTAB, Daily, Dosing Weight 66.96, kg, Start date: 05/30/17 14:30:00 CASH ACCOUNTING CLERK, Duration: 30 day, Stop date: 06/29/17 9:00:00 CSTNotes: Do not crush or chew. (Same As: Ecotrin) carvedilol 25 mg, 1 Inactive MH tab, Route: 017 [facility] PO, Drug [place] form: TAB, Q12H, Dosing Weight 66.96, kg, Priority: STAT, Start date: 05/30/17 11:27:00 CASH ACCOUNTING CLERK, Duration: 30 day, Stop date: 06/29/17 9:00:00 CSTNotes: Give with food. (Same As: Coreg) Levaquin 750 mg, 1 Inactive MH tab, Route: 017 [facility] PO, Drug [place] form: TAB, [id number], Dosing Weight 66.96, kg, Start date: 05/30/17 9:00:00 CASH ACCOUNTING CLERK, Duration: 7 day, Stop date: 06/05/17 9:00:00 CASH ACCOUNTING CLERK, ABX Indication: PneumoniaNot es: Do not give w/antacids, dairy pdt & minerals Take 1 hr before or 2 hr after dairy products Ibuprofen 600 mg, 1 No Longer MH tab, Route: Active 017 [facility] PO, Drug [place] form: TAB, TID, Dosing Weight 66.96, kg, PRN Pain Score 6-10, Start date: 05/29/17 22:37:00 CASH ACCOUNTING CLERK, Duration: 30 day, Stop date: 06/28/17 22:36:00 CSTNotes: (Same as: Motrin) "Do Not Crush" Take with food. Saline Flush 10 ml, No Longer MH 0.9% Route: IVP, Active 017 [facility] Drug Form: [place] INJ, Dosing Weight 71.364, kg, Q12H, Start date: 05/29/17 21:00:00 CASH ACCOUNTING CLERK, Duration: 30 day, Stop date: 06/28/17 9:00:00 CSTNotes: Same as: BD Posiflush Sterile Saline Flush 10 ml, No Longer MH 0.9% Route: IVP, Active 017 [facility] Drug Form: [place] INJ, Dosing Weight 71.364, kg, PRN, PRN Line Flush, Start date: 05/29/17 15:47:00 CASH ACCOUNTING CLERK, Duration: 30 day, Stop date: 06/28/17 15:46:00 CSTNotes: Same as: BD Posiflush Sterile Nitroglycerin 0.4 mg, 1 No Longer tab, Route: Active 017 [facility] SL, Drug [place] form: TAB, Q5Min, Dosing Weight 71.364, kg, PRN Chest Pain, Start date: 05/29/17 15:47:00 CASH ACCOUNTING CLERK, Duration: 3 doses or times, Stop date: [...] Weight 71.364, kg, Start date: 05/29/17 13:31:00 CASH ACCOUNTING CLERK, Stop date: 05/29/17 13:31:00 CASH ACCOUNTING CLERK, ABX Indication: PneumoniaNot es: Do not give w/antacids, dairy pdt & minerals Take 1 hr before or 2 hr after dairy products Saline Flush 10 mL, No Longer 0.9% Route: IVP, Active 017 [facility] Form: [place] INJ, Dosing Weight 71.364, kg, PRN, PRN Line Flush, Start date: 05/29/17 12:16:00 CASH ACCOUNTING CLERK, Duration: 30 day, Stop date: 06/28/17 12:15:00 CSTNotes: Same as: BD Posiflush Sterile Allergies, Adverse Reactions, Alerts Substance Category Reaction Severity Reaction Status Date Comments Source type Reported Immunizations Immunization Date Site Status Last Updated Comments Source Given pneumococcal Left completed [facility] 23-valent vaccine 7 deltoid [facility] influenza virus Left completed Parminder [facility] vaccine, 7 deltoid [facility], inactivated Medical Group Results Order Name Results Value Reference Date Interpretation Comments Source Range CARDIAC Troponin-I 0.05 ng/mL 0.00 - 05/30 ENZYMES 0.40 [facility] CARDIAC CK MB 9.8 ng/mL 0.5 - 3.6 05/30 ENZYMES /2016 [facility] CARDIAC Total CK 761 unit/L 05/30 ENZYMES /2017 [facility] CARDIAC Troponin-I 0.07 ng/mL 0.00 - 05/29 ENZYMES 0.40 [facility] CARDIAC Total CK 825 unit/L - 05/29 ENZYMES [facility] CARDIAC CK MB 11.8 ng/mL 0.5 - 3.6 05/29 ENZYMES [facility] CHEM PANEL eGFR 69 05/29 Result Comment: [...] meq/L 10.0 - 05/29 MH 20.0 /2016 [facility] CHEM PANEL Potassium 3.8 meq/L 3.5 - 5.1 05/29 Lvl /2017 [facility] CHEM PANEL CO2 24 meq/L 24 - 32 05/29 [facility] CHEM PANEL Chloride Lvl 102 meq/L 95 - 109 05/29 [facility] CHEM PANEL Calcium Lvl 8.6 mg/dL 8.5 - 10.5 05/29 [facility] CHEM PANEL BUN 24 mg/dL 7 - 22 05/29 [facility] CHEM PANEL Creatinine 1.16 mg/dL 0.50 - 05/29 Lvl 1.40 /2016 [facility] CHEM PANEL Sodium Lvl 135 meq/L 135 - 145 05/29 [facility] CHEM PANEL Glucose Lvl 88 mg/dL 70 - 99 05/29 [facility] LIPIDS HDL 44 mg/dL >=61 mg/dL 05/29 [facility] LIPIDS Chol 159 mg/dL <=199 05/29 mg/dL /2016 [facility] LIPIDS Trig 56 mg/dL <=149 05/29 mg/dL /2016 [facility] LIPIDS CHD Risk 3.61 4.00 - 05/29 MH 7. [facility] LIPIDS VLDL 11 05/29 [facility] LIPIDS LDL 104 mg/dL <=99 mg/dL 05/29 (Calculated) [facility] CARDIAC Troponin-I 0.04 ng/mL 0.00 - 05/29 ENZYMES 0.40 [facility] CARDIAC BNP 254 pg/mL <=100 05/29 ENZYMES pg/mL /2016 [facility] CARDIAC CK MB 11.4 ng/mL 0.5 - 3.6 05/29 ENZYMES [facility] CARDIAC Total CK 902 unit/L 12 - 191 05/29 ENZYMES /2016 [facility] CARDIAC CK MB Index 1.3 0.0 - 2.5 05/29 ENZYMES [facility] CHEM PANEL eGFR 68 05/29 Result Comment: [...] Lvl 132 meq/L 135 - 145 05/29 [facility] CHEM PANEL BUN 27 mg/dL 7 - 22 05/29 [facility] CHEM PANEL Creatinine 1.18 mg/dL 0.50 - 05/29 Lvl 1.40 /2016 [facility] CHEM PANEL Chloride Lvl 99 meq/L 95 - 109 05/29 [facility] CHEM PANEL Potassium 4.2 meq/L 3.5 - 5.1 05/29 MH Lvl /2016 [facility] CHEM PANEL CO2 23 meq/L 24 - 32 05/29 [facility] CHEM PANEL Albumin Lvl 3.6 g/dL 3.5 - 5.0 05/29 [facility] CHEM PANEL Total 7.7 g/dL 6.4 - 8.4 05/29 [facility] CHEM PANEL Calcium Lvl 8.7 mg/dL 8.5 - 10.5 05/29 [facility] CHEM PANEL ALT 19 unit/L 0 - 65 05/29 [facility] CHEM PANEL Alk Phos 91 unit/L 39 - 136 05/29 [facility] CHEM PANEL AST 35 unit/L 0 - 37 05/29 [facility] CHEM PANEL AGAP 14.2 meq/L 10.0 - 05/29 20.0 [facility] CHEM PANEL Bili Total 0.6 mg/dL 0.2 - 1.3 05/29 [facility] CHEM PANEL A/G Ratio 0.9 0.7 - 1.6 05/29 [facility] CHEM PANEL B/C Ratio 23 6 - 25 05/29 [facility] CHEM PANEL Globulin 4.1 g/dL 2.7 - 4.2 05/29 [facility] CHEM PANEL Glucose Lvl 101 mg/dL 70 - 99 05/29 [facility] HEMATOLOGY MCH 31.5 pg 27.0 - 05/29 31.0 [facility] HEMATOLOGY RDW 14.4 % 11.5 - 05/29 14. [facility] HEMATOLOGY MCHC 34.4 g/dL 32.0 - 05/29 36.0 [facility] HEMATOLOGY RBC 4.86 M/CMM 4.70 - 05/29 6.10 [facility] HEMATOLOGY WBC 13.8 K/CMM 3.7 - 10.4 05/29 [facility] HEMATOLOGY Hct 44.5 % 42.0 - 05/29 54.0 [facility] HEMATOLOGY Hgb 15.3 g/dL 14.0 - 05/29 MH 18.0 /2017 [facility] HEMATOLOGY Platelet 203 K/CMM 133 - 450 05/29 /2016 [facility] HEMATOLOGY MPV 8.8 fL 7.4 - 10.4 05/29 MH /2016 [facility] HEMATOLOGY MCV 91.6 fL 80.0 - 05/29 94.0 /2016 [facility] HEMATOLOGY INR 0.96 0.85 - 05/29 MH 1.17 /2016 [facility] HEMATOLOGY PT 12.8 s 12.0 - 05/29 14.7 /2016 [facility] HEMATOLOGY PTT 30.4 s 22.9 - 05/29 35.8 /2017 [facility] HEMATOLOGY Basophils # 0.1 K/CMM 0.0 - 0.2 05/29 /2016 [facility] HEMATOLOGY Eosinophils 0.1 K/CMM 0.0 - 0.5 05/29 MH # /2017 [facility] HEMATOLOGY Lymphocytes 2.2 K/CMM 1.0 - 5.5 05/29 MH # /2017 [facility] HEMATOLOGY Monocytes # 1.2 K/CMM 0.0 - 0.8 05/29 /2016 [facility] HEMATOLOGY Basophils 0.9 % 0.0 - 1.0 05/29 /2016 [facility] HEMATOLOGY Segs-Bands # 10.1 K/CMM 1.5 - 8.1 05/29 /2016 [facility] HEMATOLOGY Eosinophils 0.8 % 0.0 - 4.0 05/29 /2016 [facility] HEMATOLOGY Monocytes 9.0 % 2.0 - 12.0 05/29 /2016 [facility] HEMATOLOGY Lymphocytes 16.0 % 20.0 - 05/29 40.0 /2016 [facility] HEMATOLOGY Segs 73.3 % 45.0 - 05/29 75.0 /2016 [facility] Chest 1view Chest 1view Study: Chest 1view DX portable 05/29/2017 1253 hours 05/29 - DX DX /2016 - [facility] Clinical Indication: Chest pain Read by: Fernando [...] congestion or pleural effusion is seen. SL: [id number] Vital Signs Vital Sign Value Date Comments [...] For Provider Date Date Visit [facility] [id number] Jacob Phillips 05/29 05/31 [place] 1 Amyo /2016 [facility] [id number] ELVIE 09/25 Active [facility] Out[facility] [id number] [facility] 09/25 09/26 Cardiology 0 Medical [facility] Outpatient [id number] NOTA 10/16 Active [facility] Ambulatory [id number] Nota 10/16 10/16 Primary [facility] Procedures Procedure Code Date Perfomer Comments Source Cardiac [id number] Medical catheterization, Group left heart
--- OUTSIDE RECORDS SUMMARY | 2018-07-05 21:36 | XMS REPORT ---
:1960 [facility] [address] [place] [address] [address] [place] [address] Care Team Providers Name Role Phone Unavailable Unavailable Unavailable Payers Payer Name Policy Type Policy Number Effective Date Expiration Date Problems This patient has no known problems. Allergies, Adverse Reactions, Alerts Allergy Allergy Status Severity Reaction(s) Onset Inactive Treating Comments Name Type Date Date Clinician No Known DA Active U 2017-07 Allergies 00:00:0 0 Medications This patient has no known medications.
[2018-07-05] MEDS ORDERED: ONDANSETRON 4 MG/2 ML VIAL ONE (22:00)
[2018-07-05] MEDS ORDERED: FENTANYL CITR 100 MCG/2 ML ONE (22:12)
[2018-07-05 22:27] LABS: Absolute Monocytes 2.1 K/uL (0.1-1.3); Absolute Neutrophil 17.2 K/uL (1.8-8.0); Basophils % 0.4 % (0-1.3); Eosinophils % 0.5 % (0-4.4); Hematocrit 57.4 % (39.6-49.0); Lymphocytes % 9.3 % (15.3-44.8); Monocytes % 9.9 % (3.3-12.3); RBC Red Blood Cell Count 5.97 M/uL (4.33-5.43)
[2018-07-05 22:50] LABS: Albumin 4.4 g/dL (3.4-5.0); Bilirubin Direct 0.2 mg/dL (0-0.2); Bilirubin Total 0.9 mg/dL (0.2-1.0); Potassium 3.6 mmol/L (3.5-5.1); Protein, Total 8.3 g/dL (6.4-8.2); Troponin (Emerg Dept Use Only) 0.08 ng/mL (0.0-0.045)
[2018-07-05 23:10] LABS: Blood Morphology Comment NOT SEEN (NOT SEEN); Platelet Estimate ADEQ
[2018-07-05] MEDS ORDERED: HYDROMORPHONE HCL 0.5 MG/0.5 ML INJ ONE (23:11)
[2018-07-06] MEDS ORDERED: NA CHLORIDE 0.9% 1,000 ML ONE ×2 (00:30→01:19)
[2018-07-06] MEDS ORDERED: CEFOXITIN/SWI 1gm 1 GM/10 ML SYR ONE (01:19)
--- NOTE | 2018-07-06 01:31 | ER ---
Nurse's Notes [facility] Name: Osvaldo Pritchard Age: 58 yrs Sex: Male : 1960 Arrival Date: 07/05/2018 Time: 21:33 Bed 5 Private MD: Diagnosis: Acute gastric ulcer with perforation Presentation: 07/05 21:35 Presenting complaint: Patient states: I have been vomiting since last night, having abd la1 pain after vomiting as well. Transition of care: patient was not received from another setting of care. Onset of symptoms was July 05, 2018. Risk Assessment: Do you want to hurt yourself or someone else? Patient reports no desire to harm self or others. Initial Sepsis Screen: Does the patient meet any 2 criteria? No. Patient's initial sepsis screen is negative. Does the patient have a suspected source of infection? No. Patient's initial sepsis screen is negative. Care prior to arrival: None. 21:35 Method Of Arrival: Ambulatory la1 21:35 Acuity: MARY 3 la1 Triage Assessment: 21:56 General: Behavior is calm. General: Appears uncomfortable. GI: Reports intolerance of la1 fluids, intolerance of food, nausea, vomiting, since last night. Historical: - Allergies: 21:36 No Known Allergies; la1 - PMHx: 21:36 CAD; CVA; Hypertension; Myocardial infarction; la1 21:37 Atrial Fib; la1 - PSHx: 07/06 04:42 back surgery; right hip surgery; ak1 - Immunization history:: Adult Immunizations up to date. - Social history:: Smoking status: Patient uses tobacco products, smokes one-half pack cigarettes per day. - Ebola Screening: : No symptoms or risks identified at this time. Screenin/02 21:54 Abuse screen: Denies threats or abuse. Denies injuries from another. Nutritional la1 screening: No deficits noted. Tuberculosis screening: No symptoms or risk factors identified. Fall Risk None identified. Assessment: 21:54 General: Appears uncomfortable, slender. Pain: Complains of pain in back and abdomen. la1 Neuro: No deficits noted. Cardiovascular: No deficits noted. Respiratory: No deficits noted. GI: Abdomen is flat, pt activity vomiting in ER5 sink. pt stated vomiting started last night. ERP notified. : No signs and/or symptoms were reported regarding the genitourinary system. EENT: No signs and/or symptoms were reported regarding the EENT system. Derm: No signs and/or symptoms reported regarding the dermatologic system. 22:05 Reassessment: pt vomiting has subsided, pt c/o mid to upper back pain. pt with chronic ak1 back pain. 22:52 Reassessment: pt refused CT scan stating to polysomnography technologist he can not lay on his back due to ak1 chronic back pain. Charge nurse at bedside. 23:02 Reassessment: pt informed of new pain medication ordered then CT scan. waiting on CT ak1 tech to arrive to administer IV medications. 23:18 Reassessment: Patient and/or family updated on plan of care and expected duration. Pain ea level reassessed. Pt refused BP cuff or any vitals to be taken. 23:52 Reassessment: pt delaying CT due to refusal to lay back on CT table. pt c/o increased ak1 pain to back. Dr. Abraham in [place] with pt. pt requested "no more pain medications". 07/06 00:14 Reassessment: pt remains upright to be in a semi comfortable position. ak1 01:28 Reassessment: pt informed of need for transfer. ak1 02:04 Reassessment: pt daughter at bedside, pt requested bipap or cpap Dr. Abraham notified. RT ak1 at bedside. 02:38 Reassessment: pt requested bipap/cpap but does not want to use the mask that we ak1 provide, pt requested nasal mask. 04:17 Reassessment: pt requested to see his CT with his daughter, Dr. Abraham allowed pt and ak1 daughter to view CT image and provided explanation of images along with explanation again of why the pt needs to be transferred to [facility]. pt has been accepted to [facility] but continues to wait on a clean ICU bed to be assigned to pt. Charge nurse and desk Tech have contacted [facility] multiple times for ETA of said bed assignment. will continue to monitor. 05:26 Reassessment: report given to Jasmyn Cassidy at [facility] 7 [place] A bed 7. report given to brad More with EMS. Vital Signs: 07/05 21:36 BP 161 / 105; Pulse 110; Resp 18; Temp 98.4; Pulse Ox 98% on R/A; Weight 62.14 kg; la1 Height 6 ft. 0 in. (182.88 cm); 23:54 BP 108 / 91; Pulse 130; Resp 20; Pulse Ox 97% on R/A; ak1 03 00:14 BP 113 / 87; Pulse 132; Resp 20; ak1 01:28 Pulse 117; Resp 19; Temp 98.4; Pulse Ox 97% on R/A; ak1 02:17 BP 140 / 93; Pulse 117; Resp 24; Pulse Ox 95% on R/A; ak1 02:25 BP 115 / 86; Pulse 112; Resp 18; Pulse Ox 95% on R/A; ea 07/05 21:36 Body Mass Index 18.58 (62.14 kg, 182.88 cm) la1 ED Course: 07/05 21:33 Patient arrived in ED. am2 21:36 Triage completed. la1 21:37 Arm band placed on right wrist. la1 21:40 Luis Abraham MD is Attending Physician. gs 21:42 Lana De La Rosa, RN is Primary Nurse. ak1 21:54 Patient has correct armband on for positive identification. Bed in low position. Call la1 light in reach. Side rails up X 1. 21:54 Inserted saline lock: 20 gauge in right antecubital area, using aseptic technique. la1 ,using aseptic technique. placed by Pretty Gould Blood collected. 22:37 Notified ED physician of a critical lab result(s). WBCs of 21.5 Dr Abraham notified. bb 22:41 Placed in gown. insurance adjustor on. Pulse ox on. NIBP on. ak1 22:47 Note: pt unable to do exam at this time due to pain. he says he cannot lay down. Let mw3 Lana De La Rosa- his nurse know . 22:53 Notified ED physician of a critical lab result(s). [place] [address] Abraham ak1 notified. 07/06 00:19 CT CHEST,ABD,PELVIS W/O In Process Unspecified. EDMS 00:55 Inserted saline lock: 18 gauge in left forearm, using aseptic technique. ds4 01:42 EKG done, by ED staff, reviewed by Luis Abraham MD. ds4 03:[address] [facility] [employer] and spoke with Priya Leach she said we can't get mw2 approval until they have a room available. 03:[address] [facility] [employer] again and spoke with Priya Leach to check on the mw2 status of the transfer. She stated that the room isn't ready so we have to wait a little longer. Administered Medications: 07/05 21:53 Drug: Zofran 4 mg Route: IVP; Site: right antecubital; la1 22:17 Follow up: Response: No adverse reaction ak1 22:05 Drug: fentaNYL (PF) 25 mcg Route: IVP; Site: right antecubital; ak1 22:17 Follow up: Response: No adverse reaction; Pain is decreased ak1 22:41 Drug: fentaNYL (PF) 25 mcg Route: IVP; Site: right antecubital; ak1 07/06 00:16 Follow up: Response: No adverse reaction ak1 07/05 23:26 Drug: Dilaudid 0.5 mg Route: IVP; Site: right antecubital; ea 07/06 00:16 Follow up: Response: No adverse reaction ak1 00:26 Drug: NS 0.9% 1000 ml Route: IV; Rate: 1 bolus; Site: right antecubital; ak1 02:42 Follow up: IV Status: Completed infusion; IV Intake: 1000ml ak1 01:20 Drug: NS 0.9% 1000 ml Route: IV; Rate: 175 ml/hr; Site: left forearm; ea 05:27 Follow up: IV Status: Completed infusion ak1 01:20 Drug: cefOXitin 1 grams Route: IVPB; Infused Over: 30 mins; Site: left forearm; ea 02:42 Follow up: IV Status: Completed infusion ak1 Intake: 02:42 IV: 1000ml; Total: 1000ml. ak1 Outcome: 01:30 ER care complete, transfer ordered by . 05:27 Patient left the ED. ak1 Signatures: Dispatcher [employer] EDMS Dee Mann RN RN bb Swanson, Donovan ds4 Tyrle Campbell RN RN la1 Krenek, Amber, RN RN ak1 Alicia Truong Elena, RN RN ea Starr, Gregory, MD MD [facility], MyKena mw2 Carol Lang mw3
--- NOTE | 2018-07-06 01:31 | EDPHYS ---
Physician Documentation [facility] Name: Osvaldo Pritchard Age: 58 yrs Sex: Male : 1960 Arrival Date: 07/05/2018 Time: 21:33 Bed 5 Private MD: ED Physician Luis Abraham HPI: 07/06 01:20 This 58 yrs old Male presents to ER via Ambulatory with complaints of gs Vomiting. 01:20 The patient presents to the emergency department with vomiting, abdominal pain. Onset: gs The symptoms/episode began/occurred yesterday. Possible causes: unknown. The symptoms are aggravated by nothing. The symptoms are alleviated by nothing. Associated signs and symptoms: Pertinent positives: constipation, Pertinent negatives: dysuria, fever. Severity of symptoms: At their worst the symptoms were severe in the emergency department the symptoms are unchanged. The patient has experienced similar episodes in the past, a few times. Historical: - Allergies: 07/05 21:36 No Known Allergies; la1 - PMHx: 21:36 CAD; CVA; Hypertension; Myocardial infarction; la1 21:37 Atrial Fib; la1 - PSHx: 07/06 04:42 back surgery; right hip surgery; ak1 - Immunization history:: Adult Immunizations up to date. - Social history:: Smoking status: Patient uses tobacco products, smokes one-half pack cigarettes per day. - Ebola Screening: : No symptoms or risks identified at this time. ROS: 01:20 All other systems are negative. gs Exam: 01:20 Head/Face: Normocephalic, atraumatic. Eyes: Pupils equal round and reactive to light, gs extra-ocular motions intact. Lids and lashes normal. Conjunctiva and sclera are non-icteric and not injected. Cornea within normal limits. Periorbital areas with no swelling, redness, or edema. ENT: Nares patent. No nasal discharge, no septal abnormalities noted. Tympanic membranes are normal and external auditory canals are clear. Oropharynx with no redness, swelling, or masses, exudates, or evidence of obstruction, uvula midline. Mucous membranes moist. 01:20 Neck: Trachea midline, no thyromegaly or masses palpated, and no cervical lymphadenopathy. Supple, full range of motion without nuchal rigidity, or vertebral point tenderness. No Meningismus. Chest/axilla: Normal chest wall appearance and motion. Nontender with no deformity. No lesions are appreciated. 01:20 Respiratory: Lungs have equal breath sounds bilaterally, clear to auscultation and percussion. No rales, rhonchi or wheezes noted. No increased work of breathing, no retractions or nasal flaring. Back: No spinal tenderness. No costovertebral tenderness. Full range of motion. Skin: Warm, dry with normal turgor. Normal color with no rashes, no lesions, and no evidence of cellulitis. MS/ Extremity: Pulses equal, no cyanosis. Neurovascular intact. Full, normal range of motion. Neuro: Awake and alert, GCS 15, oriented to person, place, time, and situation. Cranial nerves II-XII grossly intact. Motor strength 5/5 in all extremities. Sensory grossly intact. Cerebellar exam normal. Normal gait. 01:20 Constitutional: The patient appears alert, awake, uncomfortable. 01:20 Cardiovascular: Rate: tachycardic, Rhythm: irregularly irregular, Pulses: no pulse deficits are appreciated. 01:20 ECG was reviewed by the Attending Physician. 01:20 Abdomen/GI: Palpation: moderate abdominal tenderness, in the right upper quadrant and left upper quadrant, rebound tenderness, is appreciated in the left upper quadrant. Vital Signs: 07/05 21:36 BP 161 / 105; Pulse 110; Resp 18; Temp 98.4; Pulse Ox 98% on R/A; Weight 62.14 kg; la1 Height 6 ft. 0 in. (182.88 cm); 23:54 BP 108 / 91; Pulse 130; Resp 20; Pulse Ox 97% on R/A; ak1 07/06 00:14 BP 113 / 87; Pulse 132; Resp 20; ak1 01:28 Pulse 117; Resp 19; Temp 98.4; Pulse Ox 97% on R/A; ak1 02:17 BP 140 / 93; Pulse 117; Resp 24; Pulse Ox 95% on R/A; ak1 02:25 BP 115 / 86; Pulse 112; Resp 18; Pulse Ox 95% on R/A; ea 07/05 21:36 Body Mass Index 18.58 (62.14 kg, 182.88 cm) la MDM: 07/05 22:03 Patient medically screened. 22:55 Patient medically screened. 07/06 01:20 Differential diagnosis: Nonspecific abd pain, pancreatitis, diverticulitis, gs gastroenteritis, pud, perf viscous. Data reviewed: vital signs, nurses notes, lab test result(s), EKG, radiologic studies. Counseling: I had a detailed discussion with the patient and/or guardian regarding: the historical points, exam findings, and any diagnostic results supporting the discharge/admit diagnosis, lab results, radiology results, the need to transfer to another facility. Response to treatment: the patient's symptoms have markedly improved after treatment. 07/05 22:07 Order name: Basic Metabolic Panel; Complete Time: 22:55 07/05 22:07 Order name: CBC with Diff; Complete Time: 23:35 07/05 22:07 Order name: Hepatic Function; Complete Time: 22:55 07/05 22:07 Order name: Lipase; Complete Time: 22:55 07/05 22:07 Order name: Troponin (emerg Dept Use Only); Complete Time: 22:55 07/05 23:10 Order name: Manual Differential; Complete Time: 23:35 EDMS 07/05 23:15 Order name: CT CHEST,ABD,PELVIS W/O EDMS 07/06 01:44 Order name: ABG 07/06 01:44 Order name: BIPAP 07/05 22:07 Order name: IV Saline Lock; Complete Time: 22:12 07/05 22:07 Order name: Labs collected and sent; Complete Time: 22:12 07/05 22:07 Order name: EKG - Nurse/Tech; Complete Time: 22:40 gs EC:20 Rate is 137 beats/min. Rhythm is regular. ST Segment is depressed in leads II, III, V5, gs V6. Clinical impression: Abnormal EKG without significant change. Interpreted by me. Administered Medications: 07/05 21:53 Drug: Zofran 4 mg Route: IVP; Site: right antecubital; la1 22:17 Follow up: Response: No adverse reaction ak1 22:05 Drug: fentaNYL (PF) 25 mcg Route: IVP; Site: right antecubital; ak1 22:17 Follow up: Response: No adverse reaction; Pain is decreased ak1 22:41 Drug: fentaNYL (PF) 25 mcg Route: IVP; Site: right antecubital; ak1 07/06 00:16 Follow up: Response: No adverse reaction ak1 07/05 23:26 Drug: Dilaudid 0.5 mg Route: IVP; Site: right antecubital; ea 07/06 00:16 Follow up: Response: No adverse reaction ak1 00:26 Drug: NS 0.9% 1000 ml Route: IV; Rate: 1 bolus; Site: right antecubital; ak1 02:42 Follow up: IV Status: Completed infusion; IV Intake: 1000ml ak1 01:20 Drug: NS 0.9% 1000 ml Route: IV; Rate: 175 ml/hr; Site: left forearm; ea 05:27 Follow up: IV Status: Completed infusion ak1 01:20 Drug: cefOXitin 1 grams Route: IVPB; Infused Over: 30 mins; Site: left forearm; ea 02:42 Follow up: IV Status: Completed infusion ak1 Disposition: 07/06/18 01:30 Transfer ordered to [facility]. Diagnosis is Acute gastric ulcer with perforation. - Reason for transfer: Higher level of care. - Accepting physician is alis. - Condition is Stable. - Problem is new. - Symptoms are unchanged. Critical care time excluding procedures: 01:20 Critical care time: Bedside Care: 10 minutes, Consultation: 10 minutes, Family gs Intervention: 10 minutes. Total time: 30 minutes Signatures: Dispatcher [employer] [facility] Tyrel Campbell RN RN Lana Calvillo RN RN frank1 Mary Ellen Powell, RN RN Luis Antonio MD MD gs Corrections: (The following items were deleted from the chart) 07/05 23:34 22:10 Stone Protocol+CT.RAD.BRZ ordered. [facility] 07/06 00:27 07/05 22:56 Chest Abdomen Pelvis Wo Con+CT.RAD.BRZ ordered. [facility] 07/06 05:27 01:30 07/06/2018 01:30 Transfer ordered to [facility]. Diagnosis is ak1 Acute gastric ulcer with perforation. Reason for transfer: Higher level of care. Accepting physician is alis. Condition is Stable. Problem is new. Symptoms are unchanged. gs
[2018-07-06 02:25] LABS: Arterial Blood Carboxyhemoglob 4.1 % (0-1.5); Blood Gas Oxyhemoglobin 85.6 % (94-97); Blood O2 Saturation 89.8 % (92-98.5)
--- NOTE | 2018-07-06 19:12 | EKG ---
Test Date: 2018-07-05 Test Time: 22:28:29 Business Intelligence Etl Developer: SOPHIE MEASUREMENT RESULTS: Intervals: Rate: 137 TX: 136 QRSD: 104 QT: 348 QTc: 525 [place]: P: 80 TX: 136 QRS: 89 T: 265 INTERPRETIVE STATEMENTS: Sinus tachycardia with premature atrial complexes with aberrant conduction Incomplete right bundle branch block Left ventricular hypertrophy with repolarization abnormality Abnormal ECG No previous ECG available for comparison Electronically Signed On 07-06-18 19:11:48 ENGINEERING AIDE by Noah Powers
--- NOTE | 2018-07-06 19:12 | EKG ---
Test Date: 2018-07-06 Test Time: 01:32:41 Chute Operator: SOPHIE MEASUREMENT RESULTS: Intervals: Rate: 114 HI: 152 QRSD: 104 QT: 356 QTc: 490 [place]: P: HI: 152 QRS: 77 T: 220 INTERPRETIVE STATEMENTS: Sinus tachycardia with premature atrial complexes Incomplete right bundle branch block LVH with secondary repolarization changes Abnormal ECG Compared to ECG 07/05/2018 22:28:29 Aberrant conduction of supraventricular beat(s) no longer present Electronically Signed On 07-06-18 19:11:38 AVIATION PROJECT MANAGER by Noah Powers
--- NOTE | 2018-07-07 16:15 | RAD REPORT ---
EXAM DESCRIPTION: CT Chest Without Contrast. CT Abdomen and Pelvis Without intravenous Contrast. CLINICAL HISTORY: The patient is 58 years old and is Male: abdominal pain. COMPARISON: No relevant prior studies available. TECHNIQUE: Axial computed tomography images of the chest, abdomen and pelvis without intravenous contrast. Sagit saundra and coronal reformatted images were created and reviewed. This CT exam was performed using one or more of the following dose reduction techniques: Automated exposure control, adjustment of the mA an d/or kV according to patient size, and/or use of iterative reconstruction technique. FINDINGS: CHEST: Lungs: Dependent atelectasis within left lower lobe is noted. The lungs are hyperinflated with extensive bilateral centrilobular emphysematous change, most predomi nant within the upper lung zones. Pleural space: A moderate to large left pleural effusion is present. No pneumothorax. Heart: No cardiomegaly. No pericardial effusion. Mediastinum: The distal esophagus is significantly thickened with a moderate amount of pneumomediasti num surrounding the distal esophagus. ABDOMEN: Liver: The liver is enlarged. A few small low attenuating foci are noted within the liver, the larges t of which measures 5 mm. AThese are too small to accurately characterize. Gallbladder and bile ducts: No calcified stones. No ductal dilation. Spleen: Unremarkable. Adrenals: Hyperplasia of the right adrenal gland is present. Kidneys and ureters: The left kidney is atrophied. The right kidney is mildly hypertrophied.No obstru cting renal or ureteral calculus is in. No hydronephrosis or hydroureter of either kidney is noted. Stomach and bowel: The stomach is diffusely fluid-filled. There is an approximately 3.3 x 2.3 cm soft tissue density mass which appears to be arising from the wall of the gastric body and extends both i ntraluminal and extraluminal. The small bowel is normal in caliber. A large amount of stool is presen t throughout the colon. There is no bowel obstruction. PELVIS: Appendix: The appendix is normal in caliber without surrounding inflammation. Bladder: The bladder is well distended. No stones. Reproductive: Unremarkable as visualized. CHEST, ABDOMEN and PELVIS: Intraperitoneal space: Focal thickening of the gastric fundus measuring approximately 1.8 cm is noted . Adjacent intraperitoneal free air and fluid among the gastric fundus is present. Several punctate foci of intraperitoneal free air scattered within the left upper quadrant. Bones/joints: Multilevel degenerative change of the spine is noted. Multilevel degenerative change of the spine is present. Soft tissues: The soft tissues are normal. Vasculature: Atherosclerosis of the aorta is present. Extensive atherosclerosis of the vasculature is present. No aortic aneurysm. Lymph nodes: Unremarkable. No enlarged lymph nodes. IMPRESSION: 1. Extremely thickened distal esophagus and gastric fundus with adjacent intraperitoneal free air dissection superiorly into the mediastinum with associated fluid and inflammation in the le ft upper quadrant. Findings are concerning for perforated malignancy. 2. Soft tissue density mass which appears to arise from the wall of the gastric body. This also raise s concern for malignancy. 3. Diffusely distended and fluid-filled stomach. 4. Moderate to large left pleural effusion. 5. Extensive bilateral emphysematous changes of lungs. 6. Large stool burden without obstruction. Electronically signed by Nemo Cool MD 07/06/2018 12:30 AM DATA PROCESSING MECHANIC Due to temporary technical issues with the PACS/Fluency reporting system, reports are being signed by the in house radiologist as a courtesy to ensure prompt reporting. The interpreting radiologist is f ully responsible for the content of the report.
== END 2018-07-06 05:27 | disposition short-term general hospital (02) ==
LOC: ER 21:32
DX: K25.1 Acute gastric ulcer with perforation (principal); I10 Essential (primary) hypertension; F17.210 Nicotine dependence, cigarettes, uncomplicated
CPT/HCPCS: 36415; 71250; 74176; 80048; 80076; 82805; 83690; 84484; 85025; 93005 ×2; 96361; 96365; 96375; 99284; J1170; J2405; J3010; J7030 ×2